=== PATIENT | male | born 1980 | race Two or more races ===

== ENCOUNTER 2025-01-20 09:49 | Outpatient (CLI) | payer OTHER ==
[2025-01-20 10:59] LABS: BASO % 0.5 % (0.1-1.2); EOS # 0.18 (0.04-0.54); HEMATOCRIT 45.1 % (40.1-51.0); HEMOGLOBIN 14.9 g/dL (13.7-17.5); LYMPH # 1.98 (1.18-3.74); LYMPH % 33.4 % (19.3-53.1); MEAN CORPUSCULAR HEMOGLOBIN 28.2 pg (25.6-32.2); MONO % 6.8 % (4.7-12.5); NEUT # 3.31 (1.56-6.13); PLATELET COUNT 196 K/uL (163-369); RED BLOOD COUNT 5.29 M/uL (4.63-6.08); RED CELL DISTRIBUTION WIDTH 13.9 % (11.6-14.4)
[2025-01-20 11:03] LABS: PH,URINE 5.5 (5.0-8.0); URINE APPEARANCE Clear; URINE BILIRRUBIN Negative (NEGATIVE); URINE BLOOD Negative; URINE COLOR Yellow; URINE GLUCOSE Negative (NEGATIVE); URINE KETONE Negative (NEGATIVE); URINE LEUKOCYTE Negative; URINE NITRATE Negative; URINE PROTEIN Negative (NEGATIVE); URINE UROBILINOGEN 0.2 E.U./dl
[2025-01-20 11:04] LABS: URINE BACTERIA 9.7 uL (0.0-1933); URINE EPITHELIAL CELLS 2.6 uL (0.0-38.8); URINE WBC 3.6 uL (0.0-23.2)
[2025-01-20 11:07] LABS: URINE RBC 0.7 uL (0.0-20.8)
[2025-01-20 11:15] LABS: ERYTHROCYTE SEDIMENTATION RATE 2 mm/hr (0-15)
[2025-01-20 11:54] LABS: ALBUMIN 4.3 gm/dL (3.4-5.0); ALKALINE PHOSPHATASE 78 U/L (50-136); ALT/SGPT 54 U/L (12-78); ANION GAP 10 (10.0-20.0); AST/SGOT 30 U/L (15-37); BILIRUBIN TOTAL 0.63 mg/dL (0.3-1.2); BLOOD UREA NITROGEN 17 mg/dL (7-18); BUN CREA RATIO 21 (7.0-25.0); C-REACTIVE PROTEIN < 0.29 MG/DL (0.00-0.29); CALCIUM 9.4 mg/dL (8.5-10.1); CARBON DIOXIDE 29 mEq/L (21-32); CHLORIDE 107 mmol/L (98-107); CHOL HDL RATIO 4.7 (0-5.0); CHOLESTEROL 242 mg/dL (0-200); CREATININE SERUM 0.82 mg/dL (0.70-1.30); FREE TRIODOTIRONINE 3.14 pg/ml (2.18-3.98); GFR 102.06; GLOBULINA 3.3 G/DL (2.4-3.5); GLUCOSE FASTING 105 mg/dL (65-100); HDL 51 mg/dl (40-60); LDL 152 mg/dl (0-130); OSMOLALITY SERUM 283 MOSM/KG (275-295); POTASSIUM 4.69 mEq/L (3.5-5.1); SODIUM 141 mmol/L (136-145); T4 TOTAL 8.75 UG/DL (4.5-12.1); TOTAL PROTEIN 7.6 gm/dL (6.4-8.2); TRIGLYCERIDES 196 mg/dL (0-150); URIC ACID 7.7 mg/dL (3.5-8.5); VLDL 39 (0-39)
[2025-01-20 11:58] LABS: RF NEGATIVE (NEGATIVE)
[2025-01-20 14:04] LABS: PROSTATIC SPECIFIC ANTIGEN 0.312 NG/ML (0.010-4.00); T3 UPTAKE 36 % (33-40)
[2025-01-20 14:26] LABS: ASO NEGATIVE DILS (NEGATIVE)
== END 2025-01-20 09:50 | disposition home or self-care (01) ==
LOC: LAB 09:49
DX: N40.0 Benign prostatic hyperplasia without lower urinary tract symptoms (principal); I10 Essential (primary) hypertension; E03.9 Hypothyroidism, unspecified; N39.0 Urinary tract infection, site not specified; E78.2 Mixed hyperlipidemia; E11.65 Type 2 diabetes mellitus with hyperglycemia

== ENCOUNTER 2025-02-15 12:06 | Outpatient (CLI) | payer OTHER | END 2025-02-15 12:13 | disposition home or self-care (01) | LOC: RAD 12:06 | DX: M17.11 Unilateral primary osteoarthritis, right knee (principal); M17.12 Unilateral primary osteoarthritis, left knee ==

== ENCOUNTER 2025-02-24 10:08 | Outpatient (CLI) | payer OTHER | END 2025-02-24 10:09 | disposition home or self-care (01) | LOC: NUCLEAR 10:08 | DX: I73.9 Peripheral vascular disease, unspecified (principal); I87.2 Venous insufficiency (chronic) (peripheral) ==

== ENCOUNTER → 2025-03-03 11:16 | Outpatient (CLI) | payer OTHER | END | disposition home or self-care (01) | LOC: NUCLEAR 02-27 10:00 | DX: I73.9 Peripheral vascular disease, unspecified (principal); I87.2 Venous insufficiency (chronic) (peripheral) ==

== ENCOUNTER 2025-05-19 17:24 | Emergency (ER) | payer OTHER ==
[~2025-05-19] VITALS: Ht 170.2 cm; Wt 117.9 kg
[2025-05-19] MEDS ORDERED: DEXAMETHASONE SODIUM PHOSPHATE 4 MG/ML VIAL IM ONE (19:00)
[2025-05-19] MEDS ORDERED: DEXAMETHASONE SODIUM PHOSPHATE 4 MG/ML VIAL ONE (20:24)
== END 2025-05-19 21:09 | disposition home or self-care (01) ==
LOC: ER 17:24
DX: S05.8X2A Other injuries of left eye and orbit, initial encounter (principal); S05.8X1A Other injuries of right eye and orbit, initial encounter; X58.XXXA Exposure to other specified factors, initial encounter; Y93.89 Activity, other specified; Y92.098 Other place in other non-institutional residence as the place of occurrence of the external cause; Y99.8 Other external cause status; Z88.0 Allergy status to penicillin